=== PATIENT | female | born 1965 | race Hispanic/Latino ===

== ENCOUNTER 2021-04-11 08:47 | Outpatient (RCR) | payer OTHER ==
[~2021-04-11 08:47] MED LIST: ASPIR 8181 MG PO; GLIMEPIRIDE1 MG PO; METFORMIN HCL1000 MG PO; OMEPRAZOLE20 MG PO; VASOTEC10 MG PO; VITAMIN D250000 UNIT PO
== END 2021-04-17 ==
LOC: PT 08:47
PROVIDERS: ATTEND Specialist
DX: M47.16 Other spondylosis with myelopathy, lumbar region (principal); M62.81 Muscle weakness (generalized); M54.5 Low back pain

== ENCOUNTER 2021-05-05 09:50 | Outpatient (RCR) | payer OTHER | END 2021-05-18 | LOC: PT 09:50 | PROVIDERS: ATTEND Specialist | DX: M47.16 Other spondylosis with myelopathy, lumbar region (principal); M62.81 Muscle weakness (generalized); M54.50 Low back pain, unspecified | CPT/HCPCS: 97139 ==